=== PATIENT | male | born 1950 | race Caucasian/White ===

== ENCOUNTER 2019-01-24 16:08 | Observation (INO) | payer OTHER ==
[2019-01-24] MEDS ORDERED: ONDANSETRON 4 MG INJ IV ×2 (16:30→18:00)
[2019-01-24] MEDS ORDERED: ACETAMINOPHEN 325 MG TAB PO ×2 (16:30→18:00)
[2019-01-24] MEDS ORDERED: HYDROCODONE/APAP (5/325) TAB PO (18:00)
[2019-01-24] MEDS: SOD CHLORIDE 0.9% 1,000 ML IV (18:08)
[2019-01-24 18:51] LABS: CREATINE KINASE 99 IU/L (23-200)
[2019-01-24 19:05] LABS: CK INDEX 0.5; CK-MB 0.49 ng/ml (0.0-2.4); TROPONIN-I < 0.012 ng/ml (0.000-0.120)
[2019-01-24] MEDS: ATORVASTATIN 40 MG TAB PO (20:54)
[2019-01-25 00:12] LABS: CREATINE KINASE 92 IU/L (23-200)
[2019-01-25 00:25] LABS: CK INDEX 0.6; CK-MB 0.54 ng/ml (0.0-2.4); TROPONIN-I < 0.012 ng/ml (0.000-0.120)
[2019-01-25 05:28] LABS: ADD MAN DIFF? NO
[2019-01-25 05:37] LABS: WHITE BLOOD COUNT 8.1 10^3/ul (4.8-10.8)
[2019-01-25 05:37] LABS: BASOPHILS % 0.4 % (0.0-2.0); EOSINOPHILS # 0.3 10^3/ul (0.0-0.5); EOSINOPHILS % 3.4 % (0.0-7.0); HEMATOCRIT 44.8 % (42.0-52.0); HEMOGLOBIN 14.8 g/dl (14.0-18.0); LYMPHOCYTES # 3.7 10^3/ul (0.8-2.9); LYMPHOCYTES % 45.9 % (15.0-51.0); MEAN CORPUSCULAR HEMOGLOBIN 29.8 pg (29.0-33.0); MEAN CORPUSCULAR VOLUME 90.1 fl (82.0-101.0); MONOCYTE # 1.1 10^3/ul (0.3-0.9); NEUTROPHILS % 37.2 % (39.0-77.0); PLATELET COUNT 235 10^3/UL (140-415); RED BLOOD COUNT 4.97 10^6/ul (4.70-6.10); RED CELL DISTRIBUTION WIDTH 13.2 % (11.5-14.5)
[2019-01-25 05:57] LABS: ANION GAP 9 (5-13); BLOOD UREA NITROGEN 21 mg/dl (7-20); CALCIUM 9.9 mg/dl (8.4-10.2); CARBON DIOXIDE 28 mmol/L (21-31); CHLORIDE 105 mmol/L (97-110); Estimated GFR > 60 mL/min (>60); GLUCOSE 108 mg/dl (70-220); POTASSIUM 4.5 mmol/L (3.5-5.1); SODIUM 142 mmol/L (135-144)
[2019-01-25 06:13] LABS: T3 UPTAKE 30.4 % (23.5-40.5)
[2019-01-25 06:15] LABS: FREE THYROXINE INDEX (Calc) 2.52 ug/ml (0.65-3.89); T4 (THYROXINE) 8.3 ug/dl (5.5-11.0)
[2019-01-25] MEDS: PANTOPRAZOLE (EC) 40 MG TAB PO (06:34)
[2019-01-25] MEDS: ENOXAPARIN 30 MG/0.3 ML SYG SC (10:08)
[2019-01-25] MEDS: SOD CHLORIDE 0.9% 1,000 ML IV (17:31)
[2019-01-25] MEDS: ATORVASTATIN 40 MG TAB PO (20:43)
[2019-01-26] MEDS: PANTOPRAZOLE (EC) 40 MG TAB PO (06:01)
[2019-01-26 06:23] LABS: ADD MAN DIFF? NO
[2019-01-26 06:28] LABS: WHITE BLOOD COUNT 6.6 10^3/ul (4.8-10.8)
[2019-01-26 06:28] LABS: BASOPHILS % 0.6 % (0.0-2.0); EOSINOPHILS # 0.4 10^3/ul (0.0-0.5); EOSINOPHILS % 6.3 % (0.0-7.0); HEMATOCRIT 41.2 % (42.0-52.0); HEMOGLOBIN 13.7 g/dl (14.0-18.0); LYMPHOCYTES % 45.2 % (15.0-51.0); MEAN CORPUSCULAR HEMOGLOBIN 29.7 pg (29.0-33.0); MEAN CORPUSCULAR HGB CONC 33.3 g/dl (32.0-37.0); MEAN CORPUSCULAR VOLUME 89.4 fl (82.0-101.0); MEAN PLATELET VOLUME 11.3 fl (7.4-10.4); MONOCYTE # 0.8 10^3/ul (0.3-0.9); MONOCYTES % 11.5 % (0.0-11.0); NEUTROPHIL # 2.4 10^3/ul (1.6-7.5); NEUTROPHILS % 36.1 % (39.0-77.0); PLATELET COUNT 219 10^3/UL (140-415); RED BLOOD COUNT 4.61 10^6/ul (4.70-6.10); RED CELL DISTRIBUTION WIDTH 13.1 % (11.5-14.5)
[2019-01-26 07:02] LABS: ANION GAP 11 (5-13); BLOOD UREA NITROGEN 20 mg/dl (7-20); CALCIUM 9.5 mg/dl (8.4-10.2); CARBON DIOXIDE 25 mmol/L (21-31); CHLORIDE 106 mmol/L (97-110); CREATININE 0.88 mg/dl (0.61-1.24); Estimated GFR > 60 mL/min (>60); GLUCOSE 103 mg/dl (70-220); POTASSIUM 4.1 mmol/L (3.5-5.1); SODIUM 142 mmol/L (135-144)
[2019-01-26 07:11] LABS: CHOLESTEROL 161 mg/dl (100-200)
[2019-01-26 07:11] LABS: CHOL/HDL RATIO 4.3 RATIO; HDL CHOLESTEROL 37 mg/dl (30-78); LDL CHOLESTEROL,CALCULATED 90 mg/dl; TRIGLYCERIDES 170 mg/dl (0-149)
[2019-01-26] MEDS: SOD CHLORIDE 0.9% 1,000 ML IV (08:28)
[2019-01-26] MEDS: ENOXAPARIN 30 MG/0.3 ML SYG SC (08:35)
== END 2019-01-26 14:38 | disposition home or self-care (01) ==
LOC: E/R 16:08 → 6WM 16:27
DX: R00.1 Bradycardia, unspecified (principal); R73.03 Prediabetes; R07.9 Chest pain, unspecified; I10 Essential (primary) hypertension; E78.5 Hyperlipidemia, unspecified; E66.9 Obesity, unspecified; Z68.30 Body mass index [BMI] 30.0-30.9, adult
CPT/HCPCS: 71045; 80048; 80061; 82550; 82553; 83036; 84436; 84443; 84479; 84484; 85025; 93005; 93306; 99285-25; G0378